=== PATIENT | female | born 1985 | race Caucasian/White ===

== ENCOUNTER 2016-12-15 12:43 | Emergency (ER) | payer OTHER, SELFPAY ==
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
[2016-12-15] MEDS ORDERED: Naproxen 500 MG TAB ONE (13:45)
[2016-12-15] MEDS ORDERED: Cyclobenzaprine 10 MG TAB ONE (13:45)
== END 2016-12-15 14:02 | disposition home or self-care (01) ==
LOC: ERS 12:43
DX: S16.1XXA Strain of muscle, fascia and tendon at neck level, initial encounter (principal); J45.909 Unspecified asthma, uncomplicated; F84.0 Autistic disorder; Z79.899 Other long term (current) drug therapy; V43.62XA Car passenger injured in collision with other type car in traffic accident, initial encounter
CPT/HCPCS: 72125

== ENCOUNTER 2018-11-28 20:34 | Emergency (ER) | payer MEDICARE, MEDICAID | END 2018-11-28 21:00 | disposition home or self-care (01) | LOC: SCSER 20:34 | DX: L03.114 Cellulitis of left upper limb (principal); J45.909 Unspecified asthma, uncomplicated; K21.9 Gastro-esophageal reflux disease without esophagitis; F84.0 Autistic disorder; Z79.899 Other long term (current) drug therapy | CPT/HCPCS: 99283 ==

== ENCOUNTER 2022-08-22 14:49 | Outpatient (CLI) | payer OTHER, MEDICAID ==
[2022-08-22] MEDS ORDERED: Magnevist 469MG/ML 20 ML VIAL ONE (15:50)
== END 2022-08-22 14:50 | disposition home or self-care (01) ==
LOC: BICMRI 14:49
PROVIDERS: ATTEND Psychiatry & Neurology Neurology
DX: G24.01 Drug induced subacute dyskinesia (principal)
CPT/HCPCS: 70553; A9579

== ENCOUNTER 2023-07-14 20:14 | Inpatient (IN) | payer OTHER, MEDICAID ==
[~2023-07-14 20:14] MED LIST: Iopamidol-370 76% 500 ML MDV (1 ML CHARGE) ONE
[2023-07-14 20:58] LABS: #Basophils 0.04 10x3/uL (0.0-0.2); %Basophils 0.3 % (0.0-1.0); %Eosinophils 0.6 % (0.0-10.0); %Lymphocytes 17.3 % (21.0-51.0); %Monocytes 7.2 % (0.0-10.0); Hematocrit 40.6 % (36.0-47.0); Hemoglobin 12.9 g/dL (12.0-16.0); Mean Corpuscular HGB CONC 31.8 g/dL (32.0-36.0); Mean Corpuscular Hemoglobin 28.5 pg (27.0-31.0); Mean Corpuscular Volume 89.6 fL (78.0-98.0); Mean Platelet Volume 9.9 fL (7.4-10.4); Platelet Count 302 10x3/uL (130-400); Red Blood Cell (RBC) Count 4.53 mill/uL (4.20-5.40)
[2023-07-14 21:07] LABS: PTT 23.2 sec (22.9-36.1); Prothrombin Time 13.1 sec (12.0-14.7)
[2023-07-14 21:12] LABS: BHCG - Serum Negative (NEGATIVE); Globulin 3.3 g/dL (2.4-3.5); Pregs Control Background? CLEAR/WHITE (CLR/WHITE); Pregs Control Bar Appear? YES (CONTROL BAR)
[2023-07-14 21:17] LABS: ALT (SGPT) 15 U/L (8-55); AST (SGOT) 18 U/L (5-34); Albumin 3.7 g/dL (3.5-5.0); Alkaline Phosphatase 82 U/L (40-110); Anion Gap 15 mmol/L (10-20); BUN (Urea Nitrogen) 19 mg/dL (7.0-18.7); Bilirubin, Total 0.4 mg/dL (0.2-1.2); CK (CPK) 64 U/L (29-168); Calc. Creatinine Clearance 0 mL/min (70-130); Calcium 9.3 mg/dL (7.8-10.44); Carbon Dioxide 21 mmol/L (22-29); Chloride 111 mmol/L (98-107); Estimated GFR 97; Glucose 83 mg/dL (70-105); Magnesium 2.1 mg/dL (1.6-2.6); Potassium 4.2 mmol/L (3.5-5.1); Sodium 143 mmol/L (136-145)
[2023-07-14 21:19] LABS: Troponin I Less than 0.010 ng/mL (< 0.028)
[2023-07-14] MEDS ORDERED: hydrALAZINE 20 MG/ML VIAL SLOW IVP PRN (22:42)
[2023-07-15 00:47] VITALS: BMI 36.3
[2023-07-15 08:18] LABS: Anion Gap 14 mmol/L (10-20); BUN (Urea Nitrogen) 15 mg/dL (7.0-18.7); Calc. Creatinine Clearance 169 mL/min (70-130); Calcium 8.7 mg/dL (7.8-10.44); Carbon Dioxide 18 mmol/L (22-29); Cardiac Risk 2.8 (Less than 4.5); Chloride 113 mmol/L (98-107); Cholesterol 172 mg/dl (< 200 Desired); Estimated GFR 114; Glucose 92 mg/dL (70-105); HDL Cholesterol 61 mg/dL (>60 Neg Risk); LDL Cholesterol, Calculated 97 mg/dL; Potassium 3.7 mmol/L (3.5-5.1); Sodium 141 mmol/L (136-145); Triglycerides 72 mg/dL (Less than 150)
[2023-07-15 08:20] LABS: Troponin I Less than 0.010 ng/mL (< 0.028)
[2023-07-15 08:28] LABS: #Basophils 0.03 10x3/uL (0.0-0.2); %Basophils 0.3 % (0.0-1.0); %Eosinophils 0.9 % (0.0-10.0); %Lymphocytes 22.7 % (21.0-51.0); %Monocytes 6.2 % (0.0-10.0); %Neutrophils 69.7 % (42.0-75.0); Hematocrit 37.4 % (36.0-47.0); Hemoglobin 11.6 g/dL (12.0-16.0); Mean Corpuscular Hemoglobin 28.6 pg (27.0-31.0); Mean Corpuscular Volume 92.1 fL (78.0-98.0); Mean Platelet Volume 10.2 fL (7.4-10.4); Platelet Count 274 10x3/uL (130-400); RBC Distribution Width 13.2 % (11.5-14.5); Red Blood Cell (RBC) Count 4.06 mill/uL (4.20-5.40)
[2023-07-15] MEDS ORDERED: Aspirin 81 mg Enteric Coated Tablet ONE ×2 (10:31→13:03)
[2023-07-15] MEDS ORDERED: diphenhydrAMINE 25 MG CAP PO PRN (11:16)
[2023-07-15] MEDS ORDERED: Acetaminophen 325 MG (10.15 ML) UDCUP PO PRN (11:30)
[2023-07-15] MEDS ORDERED: Multivit, Therapeutic 1 TAB ONE (13:04)
[2023-07-15] MEDS ORDERED: Pantoprazole DR 40 MG TAB ONE (13:04)
[2023-07-15] MEDS: Aspirin 81 mg Enteric Coated Tablet PO SCH (13:29)
[2023-07-15] MEDS: Multivitamin W/ Minerals 1 TAB PO SCH (13:29)
[2023-07-15] MEDS: Pantoprazole DR 40 MG TAB PO SCH (13:29)
[2023-07-15] MEDS: Hydrochlorothiazide 25 MG TAB PO SCH (13:30)
[2023-07-15] MEDS: Cholecalciferol 1,000 UNITS (25 MCG) TAB PO SCH (13:30)
[2023-07-15] MEDS: Pramipexole Di-HCl 0.25 MG TAB PO SCH ×2 (13:30→16:30)
[2023-07-15] MEDS: Montelukast Sodium 10 mg Tablet PO SCH (13:45)
[2023-07-15] MEDS: Loratadine 10 MG TAB PO SCH (14:01)
[2023-07-15] MEDS ORDERED: Aspirin 325 MG TAB ONE (14:56)
[2023-07-15] MEDS: Aspirin 325 mg Enteric Coated Tablet PO SCH (15:15)
[2023-07-15] MEDS: Levothyroxine Sodium 75 MCG TAB PO SCH (16:22)
[2023-07-15] MEDS ORDERED: Oxazepam 10 MG CAP PO SCH (21:00)
[2023-07-15] MEDS: Atorvastatin Calcium 40 MG TAB PO SCH (21:24)
[2023-07-15] MEDS: Gabapentin 300 MG CAP PO SCH (21:25)
[2023-07-15] MEDS: Fluticasone Propionate Nasal Spray 16 gm Bottle NASAL SCH (21:25)
[2023-07-15] MEDS: Topiramate 25 MG TAB PO SCH (21:26)
[2023-07-15] MEDS: OXAZEPAM 15 MG PO SCH (22:14)
[2023-07-16 04:48] LABS: #Basophils 0.04 10x3/uL (0.0-0.2); %Basophils 0.4 % (0.0-1.0); %Eosinophils 1.4 % (0.0-10.0); %Lymphocytes 35.5 % (21.0-51.0); %Monocytes 6.9 % (0.0-10.0); %Neutrophils 55.4 % (42.0-75.0); Hematocrit 38.1 % (36.0-47.0); Hemoglobin 11.9 g/dL (12.0-16.0); Mean Corpuscular HGB CONC 31.2 g/dL (32.0-36.0); Mean Corpuscular Hemoglobin 28.2 pg (27.0-31.0); Mean Corpuscular Volume 90.3 fL (78.0-98.0); Mean Platelet Volume 10.1 fL (7.4-10.4); Platelet Count 256 10x3/uL (130-400); Red Blood Cell (RBC) Count 4.22 mill/uL (4.20-5.40)
[2023-07-16 05:03] LABS: Globulin 2.6 g/dL (2.4-3.5)
[2023-07-16 05:07] LABS: ALT (SGPT) 13 U/L (8-55); AST (SGOT) 13 U/L (5-34); Albumin 3.2 g/dL (3.5-5.0); Alkaline Phosphatase 72 U/L (40-110); Anion Gap 12 mmol/L (10-20); BUN (Urea Nitrogen) 10 mg/dL (7.0-18.7); Bilirubin, Total 0.9 mg/dL (0.2-1.2); Calc. Creatinine Clearance 169 mL/min (70-130); Calcium 8.9 mg/dL (7.8-10.44); Carbon Dioxide 22 mmol/L (22-29); Chloride 107 mmol/L (98-107); Estimated GFR 114; Glucose 77 mg/dL (70-105); Potassium 3.2 mmol/L (3.5-5.1); Protein, Total 5.8 g/dL (6.0-8.3); Sodium 138 mmol/L (136-145)
[2023-07-16] MEDS: Levothyroxine Sodium 75 MCG TAB PO SCH (06:28)
[2023-07-16] MEDS: NORGESTREL ETHINYL ESTRADIOL PO SCH (06:36)
[2023-07-16] MEDS ORDERED: Topiramate 25 MG TAB PO SCH (09:00)
[2023-07-16] MEDS: Multivitamin W/ Minerals 1 TAB PO SCH (09:54)
[2023-07-16] MEDS: Hydrochlorothiazide 25 MG TAB PO SCH (09:54)
[2023-07-16] MEDS: Loratadine 10 MG TAB PO SCH (09:55)
[2023-07-16] MEDS: Pantoprazole DR 40 MG TAB PO SCH (09:55)
[2023-07-16] MEDS: CeleCOXIB 100 MG CAP PO SCH (09:56)
[2023-07-16] MEDS: Cholecalciferol 1,000 UNITS (25 MCG) TAB PO SCH (09:57)
[2023-07-16] MEDS: Montelukast Sodium 10 mg Tablet PO SCH ×2 (11:03→21:21)
[2023-07-16] MEDS: Valbenazine Tosylate [Ingrezza] 80 MG Capsule PO SCH ×2 (11:03→21:16)
[2023-07-16] MEDS: Potassium Chloride 20 MEQ TAB PO SCH (11:56)
[2023-07-16] MEDS: Gabapentin 300 MG CAP PO SCH (19:14)
[2023-07-17 04:11] LABS: #Basophils 0.04 10x3/uL (0.0-0.2); %Basophils 0.4 % (0.0-1.0); %Eosinophils 1.4 % (0.0-10.0); %Lymphocytes 33.5 % (21.0-51.0); %Monocytes 7.5 % (0.0-10.0); %Neutrophils 56.8 % (42.0-75.0); Hematocrit 37.8 % (36.0-47.0); Mean Corpuscular HGB CONC 31.7 g/dL (32.0-36.0); Mean Corpuscular Volume 88.3 fL (78.0-98.0); Platelet Count 257 10x3/uL (130-400); Red Blood Cell (RBC) Count 4.28 mill/uL (4.20-5.40)
[2023-07-17 04:25] LABS: Globulin 2.7 g/dL (2.4-3.5)
[2023-07-17 04:29] LABS: ALT (SGPT) 12 U/L (8-55); AST (SGOT) 16 U/L (5-34); Albumin 3.1 g/dL (3.5-5.0); Alkaline Phosphatase 76 U/L (40-110); Anion Gap 16 mmol/L (10-20); BUN (Urea Nitrogen) 15 mg/dL (7.0-18.7); Calc. Creatinine Clearance 180 mL/min (70-130); Calcium 8.8 mg/dL (7.8-10.44); Carbon Dioxide 17 mmol/L (22-29); Chloride 110 mmol/L (98-107); Estimated GFR 116; Glucose 77 mg/dL (70-105); Potassium 3.9 mmol/L (3.5-5.1); Protein, Total 5.8 g/dL (6.0-8.3); Sodium 139 mmol/L (136-145)
[2023-07-17] MEDS ORDERED: PROPOFOL 40 ML ONE (10:40)
[2023-07-17] MEDS ORDERED: Ketamine In 0.9 % NaCl 50 MG/5 ML SYRINGE ONE (10:41)
[2023-07-17 11:44] VITALS: TEMP 97.7
[2023-07-17 15:52] VITALS: BP 92/60
== END 2023-07-17 17:15 | disposition home or self-care (01) | DRG 69 ==
LOC: ERS 20:14 → ERHOLD 22:27 → 2SE 22:56 → OBSVTOIN 07-16 11:09
PROVIDERS: ADMIT Internal Medicine; ATTEND Internal Medicine
PROC: 4A00X4Z Measurement of Central Nervous Electrical Activity, External Approach (ICD-10-PCS; 2023-07-16)
PROC: 0DB48ZX Excision of Esophagogastric Junction, Via Natural or Artificial Opening Endoscopic, Diagnostic (ICD-10-PCS; principal; 2023-07-17)
DX: G45.9 Transient cerebral ischemic attack, unspecified (principal); F84.0 Autistic disorder; K21.00 Gastro-esophageal reflux disease with esophagitis, without bleeding; G20.A1 Parkinson's disease without dyskinesia, without mention of fluctuations; E03.9 Hypothyroidism, unspecified; R59.0 Localized enlarged lymph nodes; R62.50 Unspecified lack of expected normal physiological development in childhood; J30.2 Other seasonal allergic rhinitis; Z88.5 Allergy status to narcotic agent; Z91.041 Radiographic dye allergy status; Z88.2 Allergy status to sulfonamides; Z79.899 Other long term (current) drug therapy; Z90.49 Acquired absence of other specified parts of digestive tract; Z90.89 Acquired absence of other organs; Z98.51 Tubal ligation status; Z88.0 Allergy status to penicillin
CPT/HCPCS: 36415; 36416; 70450; 70490; 70496; 70498; 70551; 71045; 80048; 80053; 80061; 82550; 83735; 83880; 84443; 84484; 84703; 85025; 85610; 85730; 88305; 88312; 88341; 88342; 93005; 93010; 93306; 95700; 95711; 95819; 96360; G0378; J2704; J3490; Q9967

== ENCOUNTER 2023-08-06 09:57 | Outpatient (CLI) | payer OTHER, MEDICAID | END 2023-08-06 09:58 | disposition home or self-care (01) | LOC: BICMAMMO 09:57 | PROVIDERS: ATTEND Family Medicine | DX: Z12.31 Encounter for screening mammogram for malignant neoplasm of breast (principal); N63.20 Unspecified lump in the left breast, unspecified quadrant | CPT/HCPCS: 77063; 77067 ==

== ENCOUNTER 2023-09-08 06:00 | Day surgery (SDC) | payer OTHER, MEDICAID | END 2023-09-08 10:12 | disposition home or self-care (01) | LOC: SDC 06:00 | PROVIDERS: ATTEND Internal Medicine | PROC: 0DB38ZX Excision of Lower Esophagus, Via Natural or Artificial Opening Endoscopic, Diagnostic (ICD-10-PCS; principal; 2023-09-08) | DX: K21.00 Gastro-esophageal reflux disease with esophagitis, without bleeding (principal); K22.89 Other specified disease of esophagus; J45.909 Unspecified asthma, uncomplicated; E07.9 Disorder of thyroid, unspecified; F41.9 Anxiety disorder, unspecified; Z98.84 Bariatric surgery status; Z88.0 Allergy status to penicillin; Z88.2 Allergy status to sulfonamides; Z88.5 Allergy status to narcotic agent; Z88.8 Allergy status to other drugs, medicaments and biological substances; Z91.041 Radiographic dye allergy status; Z90.49 Acquired absence of other specified parts of digestive tract; Z79.890 Hormone replacement therapy; Z79.899 Other long term (current) drug therapy | CPT/HCPCS: 43239; J2704; 88305 ==

== ENCOUNTER 2023-09-09 08:17 | Outpatient (CLI) | payer OTHER, MEDICAID ==
[2023-09-09] MEDS ORDERED: Magnevist 469MG/ML 20 ML VIAL ONE (12:28)
== END 2023-09-09 08:18 | disposition home or self-care (01) ==
LOC: BICMRI 08:17
PROVIDERS: ATTEND Family Medicine
DX: R92.8 Other abnormal and inconclusive findings on diagnostic imaging of breast (principal)
CPT/HCPCS: A9579; C8908

== ENCOUNTER 2024-03-24 09:32 | Outpatient (CLI) | payer OTHER | END 2024-03-24 09:33 | disposition home or self-care (01) | LOC: BICMAMMO 09:32 | PROVIDERS: ATTEND Family Medicine | DX: R92.8 Other abnormal and inconclusive findings on diagnostic imaging of breast (principal) | CPT/HCPCS: 76642; 77065; G0279 ==

== ENCOUNTER 2024-11-03 18:34 | Emergency (ER) | payer OTHER ==
[2024-11-03 20:10] LABS: Bacteria/HPF None Seen HPF (None Seen); CAUTI Indications for Culture Alt mental st,lethar; Glucose, Urine (Dipstick) Normal (Negative); Leukocyte 500 Leu/uL (Negative); Protein, Urine (Dipstick) Negative (Neg-Trace); Specific Gravity, Urine 1.030 (1.002-1.036)
[2024-11-03 20:16] LABS: Urine Culture Reflex Yes Yes
[2024-11-03 20:44] LABS: #Basophils 0.06 10x3/uL (0.0-0.2); #Eosinophils 0.19 10x3/uL (0.0-0.7); #Monocytes 0.79 10x3/uL (0.11-0.59); #Neutrophils 8.33 10x3/uL (1.40-6.50); %Basophils 0.5 % (0.0-1.0); %Eosinophils 1.6 % (0.0-10.0); %Lymphocytes 20.1 % (21.0-51.0); %Monocytes 6.7 % (0.0-10.0); %Neutrophils 70.8 % (42.0-75.0); Hematocrit 38.9 % (36.0-47.0); Hemoglobin 11.8 g/dL (12.0-16.0); Mean Corpuscular Hemoglobin 26.3 pg (27.0-31.0); Mean Corpuscular Volume 86.6 fL (78.0-98.0); Platelet Count 242 10x3/uL (130-400); Red Blood Cell (RBC) Count 4.49 mill/uL (4.20-5.40); White Blood Cell (WBC) Count 11.76 10x3/uL (4.8-10.8)
[2024-11-03 21:01] LABS: ALT (SGPT) 12 U/L (Less than 34); AST (SGOT) 18 U/L (11-34); Albumin 3.7 g/dL (3.1-4.5); Alkaline Phosphatase 74 U/L (40-110); Anion Gap 17 mmol/L (10-20); BUN (Urea Nitrogen) 18 mg/dL (7.0-18.7); Bilirubin, Total 0.5 mg/dL (0.3-1.2); Calc. Creatinine Clearance 0 mL/min (70-130); Calcium 8.8 mg/dL (7.8-10.44); Carbon Dioxide 23 mmol/L (22-29); Chloride 110 mmol/L (98-107); Globulin 2.5 g/dL (2.4-3.5); Glucose 84 mg/dL (70-105); Potassium 3.5 mmol/L (3.5-5.1); Sodium 146 mmol/L (136-145)
[2024-11-03] MEDS ORDERED: cefTRIAXone (ROCEPHIN) 2 GM VIAL ONE (21:02)
[2024-11-03] MEDS ORDERED: cefTRIAXone (ROCEPHIN) 1 GM VIAL ONE (21:32)
[2024-11-03] MEDS ORDERED: Lidocaine 1% PF 5 ML VIAL ONE (21:32)
== END 2024-11-03 21:45 | disposition home or self-care (01) ==
LOC: ERS 18:34
DX: N39.0 Urinary tract infection, site not specified (principal); K21.9 Gastro-esophageal reflux disease without esophagitis; Z79.82 Long term (current) use of aspirin; Z79.899 Other long term (current) drug therapy
CPT/HCPCS: 70450; 80053; 81001; 83605; 84702; 85025; 87086; J0696; 96372